=== PATIENT | male | born 1970 | race Caucasian/White ===

== ENCOUNTER 2024-09-10 13:45 | Outpatient (REF) | payer OTHER, SELFPAY ==
--- NOTE | ~2024-09-10 | US_ITS ---
EXAMINATION: US DIAGNOSTIC ULTRASOUND BREAST, LEFT CLINICAL INFORMATION: Follow-up ultrasound examination from diagnostic mammogram 09/10/2024. Left nipple tenderness, mild left breast enlargement . 54-year-old male. COMPARISON: Mammography dated earlier same day. TECHNIQUE: Ultrasound of the left breast is performed with real-time gregory scale imaging and color Doppler. Attention was given to the left retroareolar region. FINDINGS: There is a mild amount of retroareolar breast tissue development. Findings are consistent with mild male gynecomastia. No suspicious mass, abnormal shadowing, cystic abnormality, duct ectasia, or edema within the soft tissue planes. This correlates with the appearance on the diagnostic mammography from earlier same day. US/US breast LT limited mamm only IMPRESSION: -No findings suspicious for malignancy. -Mild left male gynecomastia. Recommend clinical management and follow-up. ASSESSMENT: BI-RADS 2: Benign RECOMMENDATION: 1. Patient should be managed based on the clinical impression. Electronically signed by: Marcio Membreno MD 09/12/2024 12:14 PM LA REYNOSO
--- NOTE | ~2024-09-10 | MM_ITS ---
EXAMINATION: MM DIAGNOSTIC DIGITAL BREAST TOMOSYNTHESIS, BILATERAL CLINICAL INFORMATION: Left middle tenderness, mild left breast enlargement . 54-year-old male. COMPARISON: Mammography: Baseline exam. TECHNIQUE: Digital breast tomosynthesis is performed in both the craniocaudal and mediolateral oblique views along with computer-aided detection (CAD). Synthesized 2D images are generated from the tomosynthesis. FINDINGS: The breasts are almost entirely fatty (ACR BI-RADS breast composition Category a). There is mild left and minimal right retroareolar breast tissue development consistent with male gynecomastia. There are no suspicious masses, suspicious grouped calcifications, or areas of architectural distortion in either breast. There is no skin or axillary abnormality. We will evaluate the retroareolar left breast with ultrasound. MM/MM tomosynthesis diagnostic BI IMPRESSION: There are no findings suspicious for malignancy. Findings suggestive of mild left gynecomastia. Ultrasound recommended. ASSESSMENT: BI-RADS BI-RADS 0 - Incomplete: Needs additional Imaging. RECOMMENDATION: Additional Imaging required: Targeted left breast ultrasound. This patient's information was entered into a reminder system with a target due date for their next mammogram. Electronically signed by: Marcio Membreno MD 09/10/2024 03:26 PM LA
== END 2024-09-10 13:46 | disposition home or self-care (01) ==
LOC: HO.MAMMO 13:45
PROVIDERS: PCP Internal Medicine; Visit Provider Nurse Practitioner Family
DX: N64.4 Mastodynia (principal); N62 Hypertrophy of breast
CPT/HCPCS: 76642; 77062; 77066

== ENCOUNTER → 2024-09-10 14:00 | Outpatient (BNV) | payer OTHER, SELFPAY | PROVIDERS: PCP Internal Medicine; Visit Provider Radiology Diagnostic Radiology | DX: N64.4 Mastodynia (principal) | CPT/HCPCS: 76642; 77062; 77066 ==

== ENCOUNTER 2025-03-01 12:11 | Emergency (ER) | payer OTHER, SELFPAY ==
--- NOTE | 2025-03-01 12:14 | ED_ITS ---
HPI - Eye Problem General Chief complaint: Skin/Abscess/Foreign Body Stated complaint: Infection Under Left Eye Time Seen by Provider: 03/01/25 14:43 Related Data Home Medications ?Medication ?Instructions ?Recorded ?Confirmed buspirone 10 mg tablet 10 mg PO BID 09/27/22 clonazepam 0.5 mg tablet 0.5 mg PO .prn 09/27/22 gabapentin 600 mg tablet 600 mg PO .prn 09/27/22 humalog insulin pump 09/27/22 lisinopril 10 mg tablet 10 mg PO DAILY 09/27/22 metoclopramide HCl 10 mg tablet 10 mg PO Q6H PRN 09/27/22 (Reglan) Previous Rx's ?Medication ?Instructions ?Recorded sulfamethoxazole 800 1 tab PO BID 5 days #10 tabs 09/27/22 mg-trimethoprim 160 mg tablet (Bactrim DS) cephalexin 500 mg capsule 500 mg PO QID 5 days #20 caps 03/01/25 doxycycline hyclate 100 mg capsule 100 mg PO BID 5 days #10 caps 03/01/25 Allergies Allergy/AdvReac Type Severity Reaction Status Date / Time codeine [Codeine] AdvReac Mild NAUSEA & Verified 03/01/25 12:39 VOMITING PMFSH Social History Social History Alcohol intake: never Smoked in Last 30 Days: No Use of substances other than those prescribed or required for medical reasons: Yes Substance Use Type: Marijuana Advance Directives: Yes Advance Directives Information Provided: Yes Advance Directives on File: No Physical Exam 2 Vital Signs: Vital Signs: Last Vital Signs Temp 98.5 F 03/01/25 15:44 Pulse 84 03/01/25 15:44 Resp 14 03/01/25 15:44 BP 121/79 03/01/25 15:44 Pulse Ox 100 03/01/25 15:44 O2 Del Method Room Air 03/01/25 15:44 BMI result Body Mass Index 20.4 Course Course Course Narrative: This is an RME performed by Zack Logan CNP: Additional HPI, ROS, PE not included below will be deferred to primary provider. 54 yo male with PMHx of presents to the ED due to abscess under the L eye. [facility]. Reports he has had same episode of abscess in the same spot 1 year ago, had MRSA and was treated with ABX. He states he feels mild pressure in the area, but denies orbital pain . Does not know if he has had fevers at home, has not checked. PE: EOM intact, 2x2cm fluctuant abscess with small volume purulent discharge. Plan: labs, Reevaluation(s) Reevaluation #1: see additional note dated 03/01/2025 from brent ferris Medications Administered Discontinued Medications Generic Name Dose Route Start Last Admin Trade Name Ronnellq PRN Reason Stop Dose Admin Cephalexin HCl 500 mg 03/01/25 15:18 03/01/25 15:36 Cephalexin 500 Mg Capsule PO 03/01/25 15:19 500 mg ONCE ONE Administration Doxycycline Monohydrate 100 mg 03/01/25 15:18 03/01/25 15:36 Doxycycline Monohydrate 100 Mg Capsule PO 03/01/25 15:19 100 mg ONCE ONE Administration Lactated Ringer's 1,000 mls @ 999 mls/hr 03/01/25 14:43 03/01/25 15:40 Lr IV 03/01/25 15:43 Infused .Q1H1M ONE Infusion Lidocaine HCl 10 ml 03/01/25 14:45 03/01/25 15:03 Lidocaine Hcl 1 % 20 Ml Vial INFILTRATI 03/01/25 14:46 10 ml ONCE ONE Administration Medical Decision Making Lab Data 03/01/25 13:15 03/01/25 13:15 Labs: Lab Results 03/01/25 Range/Units 13:15 WBC 11.9 H (4.8-10.8) X10*3/uL RBC 3.91 L (4.60-5.80) X10*6/uL Hgb 12.4 L (14.0-18.0) g/dl Hct 35.6 L (42.0-52.0) % MCV 91.0 (80.0-98.0) fL MCH 31.7 (27.0-33.0) pg MCHC 34.8 (31.0-36.0) g/dl RDW 12.8 (11.0-16.0) % Plt Count 275 (160-400) X10*3/uL MPV 10.4 (9.4-12.4) fL Immature Gran % (Auto) 0.3 (0.0-0.4) % Neut % (Auto) 72.0 (45-73) % Lymph % (Auto) 18.1 L (20-40) % [place] % (Auto) 9.2 (2-11) % Eos % (Auto) 0.0 (0-4) % Baso % (Auto) 0.4 (0-2) % Lymph # (Auto) 2.2 (1.2-4.9) X10*3/uL [place] # (Auto) 1.1 (0.1-1.2) X10*3/uL Eos # (Auto) 0.0 (0.0-0.4) X10*3/uL Baso # (Auto) 0.1 (0.0-0.2) X10*3/uL Abs Immat Gran (auto) 0.04 H (0.00-0.03) X10*3/uL Absolute Neuts (auto) 8.6 H (2.0-8.3) x10*3/uL Absolute Nucleated RBC 0.000 (0.0-0.012) X10*3/uL Nucleated RBC % (auto) 0.0 (0.0-0.2) /100WBC Sodium 134 L (135-145) mmol/L Potassium 3.8 (3.3-5.1) mmol/L Chloride 97 (96-108) mmol/L Carbon Dioxide 27 (22-29) mmol/L Anion Gap 14 (12-20) BUN 41 H (9-16) mg/dL Creatinine 1.55 H (0.5-1.4) mg/dL Estim Creat Clear Calc 55.7 Estimated GFR 47 Random Glucose 193 H (60-115) mg/dL Calcium 9.4 (8.4-10.2) mg/dL Total Bilirubin 0.5 (0.0-1.0) mg/dL AST 27 (5-37) U/L ALT 25 (0-40) U/L Alkaline Phosphatase 78 (39-117) U/L Total Protein 7.1 (6.5-8.0) g/dL Albumin 4.3 (3.5-5.0) g/dL Discharge Plan Discharge Clinical Impression: Cellulitis, Abscess of skin or subcutaneous tissue, Acute kidney injury Patient Disposition: Home, Self-Care Instructions: Abscess Incision and Drainage (DC) Additional Instructions: You were seen and evaluated in the emergency room. Your abscess was incised and drained. You were given antibiotics. A prescription for 2 antibiotics has been sent to your pharmacy. Please take as directed and until completed. Your doxycyline antibiotic should be taken twice a day - once in the morning and once at night. Your cephalexin antibiotics should be taken four times a day - once in the morning, once late morning/at noon, once in the afternoon and once in the evening (approximately 6 hours apart). You may change the dressing/bandage on your face 1-2x per day. Please wash your face daily with soap and water only. Please continue to apply a triple antibiotic ointment such as Neosporin 2-3x per day until healed. After you wound has healed, please avoid direct sunlight and use SPF30 to avoid scar formation. Please do so for one year. Barkley were noted to have some evidence of potential dehydration on your blood work and so were given fluids (your BUN was 41 and Creatinine 1.55). Please follow up with your primary care doctor in 3-5 days for reevluation. Return to the emergency room with any new concerns or symptoms. Prescriptions: New cephalexin 500 mg capsule 500 mg PO QID 5 Days Qty: 20 0RF doxycycline hyclate 100 mg capsule 100 mg PO BID 5 Days Qty: 10 0RF No Action buspirone 10 mg tablet 10 mg PO BID metoclopramide HCl [Reglan] 10 mg tablet 10 mg PO Q6H PRN lisinopril 10 mg tablet 10 mg PO DAILY gabapentin 600 mg tablet 600 mg PO .prn clonazepam 0.5 mg tablet 0.5 mg PO .prn (DME) humalog insulin pump 0 .ROUTE .MEDSUPPLY sulfamethoxazole-trimethoprim [Bactrim DS] 800-160 mg tablet 1 tab PO BID 5 Days Qty: 10 0RF Interventions: ED Discharge Assessment Last Done: 03/01/25 15:44 Discharge Date/Time: 03/01/25 15:45 Print Language: Azeri
[2025-03-01 12:26] VITALS: BP 126/78; PULSE 108; RESP 18; TEMP 36.6; O2SAT 100; BMI 20.4
[2025-03-01 13:19] LABS: MANUAL DIFF FLAG NO
[2025-03-01 13:21] LABS: Basophils Absolute Auto 0.1 X10*3/uL (0.0-0.2); Basophils Percent Auto 0.4 % (0-2); Hematocrit 35.6 % (42.0-52.0); Hemoglobin 12.4 g/dl (14.0-18.0); Imm Gran Abs Auto 0.04 X10*3/uL (0.00-0.03); Imm Gran Pct Auto 0.3 % (0.0-0.4); Lymphocytes Absolute Auto 2.2 X10*3/uL (1.2-4.9); Lymphocytes Percent Auto 18.1 % (20-40); Mean Corpuscular HGB Conc 34.8 g/dl (31.0-36.0); Mean Corpuscular Hemoglobin 31.7 pg (27.0-33.0); Mean Platelet Volume 10.4 fL (9.4-12.4); Monocytes Absolute Auto 1.1 X10*3/uL (0.1-1.2); Monocytes Percent Auto 9.2 % (2-11); Neutrophils Absolute Auto 8.6 x10*3/uL (2.0-8.3); Platelet Count 275 X10*3/uL (160-400); Red Blood Count 3.91 X10*6/uL (4.60-5.80); Red Cell Distribution Width 12.8 % (11.0-16.0); White Blood Count 11.9 X10*3/uL (4.8-10.8)
[2025-03-01 13:34] LABS: Alanine Aminotransferase 25 U/L (0-40); Albumin Level 4.3 g/dL (3.5-5.0); Alkaline Phosphatase 78 U/L (39-117); Anion Gap 14 (12-20); Aspartate Amino Transferase 27 U/L (5-37); Bilirubin Total 0.5 mg/dL (0.0-1.0); Blood Urea Nitrogen 41 mg/dL (9-16); Calcium 9.4 mg/dL (8.4-10.2); Carbon Dioxide 27 mmol/L (22-29); Chloride 97 mmol/L (96-108); Creatinine Clr Calc Pharmacy 55.7; Estimated Glomerular Filt Rate 47; Glucose Random 193 mg/dL (60-115); Potassium 3.8 mmol/L (3.3-5.1); Sodium 134 mmol/L (135-145); Total Protein 7.1 g/dL (6.5-8.0)
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
--- OUTSIDE RECORDS SUMMARY | 2025-03-01 14:49 | XMS_ITS ---
Author Organization [facility] Address [address] [place] [address] Care Team Providers Care Electrical Installation Inspector Name Role Phone Guy CAM, Christine Primary Care Provider Unavail able Harinder Cameron Unavailable [phone] Allergies Allergen (clinical drug ingredient) Drug/Non Drug Allergy documented on EMR Reaction Allergy Type Onset Date Status codeine Codeine Sulfate Unknown Drug Allergy A ctive REASON FOR VISIT bowel prep Medications Medication SIG (Take, Route, Frequency, Duration) Notes Start Date End Date Status Dulcolax (colon prep) 5 MG take at 3:00 p.m and 7:00p.m. Orally two tablets twice a day for one day for 1 days 02/17/2025 Active MiraLax (colon prep) 17 GM/SCOOP 1 238 Gm bottle mixed with Gatorade or Crystal Light orally begin at 5:00 p.m. the day before the procedure for 1 days 02/17/2025 Active Problems Problem Type SNOMED Code ICD Code Onset Dates Problem Status W/U Status Risk Notes Problem Gastric ulcer (590258858) Gastric ulcer (K25.9) Active confirmed Encounters Encounter Location Date Provider Diagnosis [facility] [address] [place] [phone] 01/04/2025 Harinder Cameron Plan Of Treatment Medication Medication Name Sig Start Date Stop Date Notes Dulcolax (colon prep) 5 MG take at 3:00 p.m and 7:00p.m. Orally two tablets twice a day for one day for 1 days 02/17/2025 MiraLax (colon prep) 17 GM/SCOOP 1 238 Gm bottle mixed with Gatorade or Crystal Light orally begin at 5:00 p.m. the day before the procedure for 1 days 02/17/2025 Next Appt Details Provider Name:Harinder Cameron , 04/12/2025 11:10:00 AM, [address] , [place], [place], [phone], Progress Notes * DARYA BETTENCOURTDOB:1970 (54 yo M)Acc No.[id number]:01/04/2025 Patient:?DARYA BETTENCOURT :1970???Age:54 Y???Sex:Male Address:[address] [place] [address] * Refills? Start MiraLax (colon prep) Powder, 17 GM/SCOOP, orally, 1, 1 238 Gm bottle mixed with Gatorade or Crystal Light, begin at 5:00 p.m. the day before the procedure, 1 days, Refills=0 Start Dulcolax (colon prep) Tablet Delayed Release, 5 MG, Orally, 4, take at 3:00 p.m and 7:00p.m., two tablets twice a day for one day, 1 days, Refills=0 Subjective: * Chief Complaints: * ???Bowel prep * Medical History:? * Surgical History:? * Hospitalization/Major Diagno stic Procedure:? * Medications:? * Allergies:?Codeine Sulfate Objective: * Vitals:? * Physical Examination:? Assessment: Plan: * Treatment: * Procedure Codes:? * true * Date:? Generated for Maame miller/Latoya/eTvinaysmitting on:?03/01/2025 11:33 AM EDT
--- OUTSIDE RECORDS SUMMARY | 2025-03-01 14:49 | XMS_ITS | Clinical Summary ---
Author Organization Formerly [facility] Address [address] [place] [address] Care Team Providers Care Perfumer Name Role Phone Unavailable Primary Care Provider Unavailabl e Social History Tobacco Use Types Packs/Day Years Used Date Smoking Tobacco: Never Assessed Sex and Gender Information Value Date Recorded Sex Assigned at Not on file Gender Identity Not on file Sexual Orientation Not on file Plan of Treatment Not on file
--- OUTSIDE RECORDS SUMMARY | 2025-03-01 14:49 | XMS_ITS ---
Author Organization [facility] Address [address] [place] [id number] Care Team Providers Care Chip Mixer Name Role Phone Guy CAM, Christine Primary Care Provider Unavail able Harinder Cameron Unavailable [phone] REASON FOR VISIT EGD RECALL Encounters Encounter Location Date Provider Diagnosis [facility] [address] [place] [phone] 12/28/2024 Harinder Cameron Plan Of Treatment Next Appt Details Provider Name:Harinder Cameron , 04/12/2025 11:10:00 AM, [address] [place] [address] , [place], [place], [phone], Progress Notes * DARYA BETTENCOURTDOB:1970 (54 yo M)Acc No.[id number]:12/28/2024 Progress Notes Patient:DARYA HOOPER Provider:?Harinder Cameron MD :1970???Age:54 Y???Sex:Male Kal e:12/28/2024 Address:[address] [place], [place] [id number] Pcp:Christine Tovar NP Subjective: * Chief Complaints: * ???1. EGD RECALL. * Medical History:? Objective: * Vitals:? Assessment: Plan: * Treatment: * * The named appointment provid er may or may not be the originator of this progress note, and it is not deemed complete until electronically signed by the appointment provider. Sign off status: Pending * Provider:?Harinder Cameron MD Date:? 025 Generated for Maame miller/Latoya/eTransmitting on:?03/01/2025 11:33 AM EDT
[2025-03-01] MEDS: Lactated Ringers 1,000 ML 999 ML IV (14:56)
[2025-03-01] MEDS: Lidocaine HCl 1 % 20 ML VIAL 10 ML INFILTRATI (15:03)
--- NOTE | 2025-03-01 15:19 | ED.GENADULT ---
HPI - General Adult General Chief complaint: Skin/Abscess/Foreign Body Stated complaint: Infection Under Left Eye Time Seen by Provider: 03/01/25 14:43 Source: patient Mode of arrival: ambulatory Limitations: no limitations History of Present Illness HPI narrative: this is a 54-year-old man with a past medical history of hypertension, hyperlipidemia, type 1 diabetes mellitus (on insulin pump) complicated by gastroparesis, history of MRSA who presents for evaluation of skin abscess. Patient states noting this developing over the last 5 days. Patient states that he previously had a similar abscess in the same area about a year ago. The patient states that he is noted to have a MRSA infection at that time. patient states no associated fevers or chills. He states no eye pain no pain with eye movement. He states no vision changes. He states no otalgia. He states no sore throat. He states no chest pain or dyspnea. He states no trauma. Related Data Home Medications ?Medication ?Instructions ?Recorded ?Confirmed buspirone 10 mg tablet 10 mg PO BID 09/27/22 clonazepam 0.5 mg tablet 0.5 mg PO .prn 09/27/22 gabapentin 600 mg tablet 600 mg PO .prn 09/27/22 humalog insulin pump 09/27/22 lisinopril 10 mg tablet 10 mg PO DAILY 09/27/22 metoclopramide HCl 10 mg tablet 10 mg PO Q6H PRN 09/27/22 (Reglan) Previous Rx's ?Medication ?Instructions ?Recorded sulfamethoxazole 800 1 tab PO BID 5 days #10 tabs 09/27/22 mg-trimethoprim 160 mg tablet (Bactrim DS) cephalexin 500 mg capsule 500 mg PO QID 5 days #20 caps 03/01/25 doxycycline hyclate 100 mg capsule 100 mg PO BID 5 days #10 caps 03/01/25 Allergies Allergy/AdvReac Type Severity Reaction Status Date / Time codeine [Codeine] AdvReac Mild NAUSEA & Verified 03/01/25 12:39 VOMITING Review of Systems Review of Systems: ROS as per HPI [facility] Social History Social History Alcohol intake: never Smoked in Last 30 Days: No Use of substances other than those prescribed or required for medical reasons: Yes Substance Use Type: Marijuana Advance Directives: Yes Advance Directives Information Provided: Yes Advance Directives on File: No Physical Exam ED Vital Signs: Vital Signs - 24 hr 03/01/25 12:26 Temperature 97.8 F Pulse Rate 108 H Respiratory Rate 18 Blood Pressure 126/78 Pulse Oximetry 100 Oxygen Delivery Method Room Air BMI result Body Mass Index 20.4 Gen: NAD, AOx3 HEENT: NCAT, EOMI without pain, normal conjunctiva, no periorbital erythema CV: RRR Pulm: CTAB, no increased work of breathing GI: Soft, NTND, no rebound, guarding or rigidity Neuro: Grossly non focal skin: Warm, dry, erythematous/warm fluctuance overlying the left zygoma with tenderness to palpation and minimal spontaneous purulent drainage Medications Administered Generic Name Dose Route Start Last Admin Trade Name Freq PRN Reason Stop Dose Admin Lactated Ringer's 1,000 mls @ 999 mls/hr 03/01/25 14:43 03/01/25 14:56 Lr IV 03/01/25 15:43 999 mls/hr .Q1H1M ONE Administration Discontinued Medications Generic Name Dose Route Start Last Admin Trade Name Freq PRN Reason Stop Dose Admin Lidocaine HCl 10 ml 03/01/25 14:45 03/01/25 15:03 Lidocaine Hcl 1 % 20 Ml Vial INFILTRATI 03/01/25 14:46 10 ml ONCE ONE Administration Procedures Abscess I/D Site: face Side (if applicable): left Local Anesthetic: lidocaine 1% Amount of anesthesia used (mL): 3 Technique: incised with blade Sent for culture/gram staining?: Yes Irrigation: Yes Packing used?: none Medical Decision Making Medical Decision Making MDM Narrative: Differential diagnosis includes, but is not limited to cellulitis, abscess. Patient is afebrile and hemodynamically stable on room air. Exam is consistent with abscess and associated facial cellulitis to the overlying skin. There is no periorbital erythema to suggest periorbital cellulitis and certainly exam as above is not consistent with orbital cellulitis. Abscess is incised and drained as above without complication. Patient is provided cephalexin as well as doxycyline given associated purulence and history of MRSA. I reviewed the patient's labs as below. Given potential for acute kidney injury the patient was provided IV fluids although there is no previous blood work for comparison. Patient made aware of this finding and need for re-evaluation with his primary care doctor. He stated understanding and agreement with plan of care. On re-examination, patient is well-appearing and in no acute distress. There is no indication for further emergent evaluation in this otherwise well-appearing patient as above. Patient is provided written and verbal instructions, educational materials, recommendations for outpatient follow-up, prescription for cephalexin and doxycyline, strict return precautions and teach back is performed. Patient states understanding and agreement with plan of care. Patient is discharged home in stable and improved condition. Admission/Observation Consideration of admission/observation: Escalation of care including admission/observation considered Lab Data MDM Lab Attestation statement: I reviewed the patient's lab results. Labs notable for leukocytosis of 11.9, stable anemia with hemoglobin 12.4, creatinin 1.55 ( no previous for comparison) 03/01/25 13:15 03/01/25 13:15 Labs: Lab Results 03/01/25 Range/Units 13:15 WBC 11.9 H (4.8-10.8) X10*3/uL RBC 3.91 L (4.60-5.80) X10*6/uL Hgb 12.4 L (14.0-18.0) g/dl Hct 35.6 L (42.0-52.0) % MCV 91.0 (80.0-98.0) fL MCH 31.7 (27.0-33.0) pg MCHC 34.8 (31.0-36.0) g/dl RDW 12.8 (11.0-16.0) % Plt Count 275 (160-400) X10*3/uL MPV 10.4 (9.4-12.4) fL Immature Gran % (Auto) 0.3 (0.0-0.4) % Neut % (Auto) 72.0 (45-73) % Lymph % (Auto) 18.1 L (20-40) % Prowers % (Auto) 9.2 (2-11) % Eos % (Auto) 0.0 (0-4) % Baso % (Auto) 0.4 (0-2) % Lymph # (Auto) 2.2 (1.2-4.9) X10*3/uL Prowers # (Auto) 1.1 (0.1-1.2) X10*3/uL Eos # (Auto) 0.0 (0.0-0.4) X10*3/uL Baso # (Auto) 0.1 (0.0-0.2) X10*3/uL Abs Immat Gran (auto) 0.04 H (0.00-0.03) X10*3/uL Absolute Neuts (auto) 8.6 H (2.0-8.3) x10*3/uL Absolute Nucleated RBC 0.000 (0.0-0.012) X10*3/uL Nucleated RBC % (auto) 0.0 (0.0-0.2) /100WBC Sodium 134 L (135-145) mmol/L Potassium 3.8 (3.3-5.1) mmol/L Chloride 97 (96-108) mmol/L Carbon Dioxide 27 (22-29) mmol/L Anion Gap 14 (12-20) BUN 41 H (9-16) mg/dL Creatinine 1.55 H (0.5-1.4) mg/dL Estim Creat Clear Calc 55.7 Estimated GFR 47 Random Glucose 193 H (60-115) mg/dL Calcium 9.4 (8.4-10.2) mg/dL Total Bilirubin 0.5 (0.0-1.0) mg/dL AST 27 (5-37) U/L ALT 25 (0-40) U/L Alkaline Phosphatase 78 (39-117) U/L Total Protein 7.1 (6.5-8.0) g/dL Albumin 4.3 (3.5-5.0) g/dL Discharge Plan Discharge Clinical Impression: Cellulitis, Abscess of skin or subcutaneous tissue, Acute kidney injury Patient Disposition: Home, Self-Care Instructions: Abscess Incision and Drainage (DC) Additional Instructions: You were seen and evaluated in the emergency room. Your abscess was incised and drained. You were given antibiotics. A prescription for 2 antibiotics has been sent to your pharmacy. Please take as directed and until completed. Your doxycyline antibiotic should be taken twice a day - once in the morning and once at night. Your cephalexin antibiotics should be taken four times a day - once in the morning, once late morning/at noon, once in the afternoon and once in the evening (approximately 6 hours apart). You may change the dressing/bandage on your face 1-2x per day. Please wash your face daily with soap and water only. Please continue to apply a triple antibiotic ointment such as Neosporin 2-3x per day until healed. After you wound has healed, please avoid direct sunlight and use SPF30 to avoid scar formation. Please do so for one year. Barkley were noted to have some evidence of potential dehydration on your blood work and so were given fluids (your BUN was 41 and Creatinine 1.55). Please follow up with your primary care doctor in 3-5 days for reevluation. Return to the emergency room with any new concerns or symptoms. Prescriptions: New cephalexin 500 mg capsule 500 mg PO QID 5 Days Qty: 20 0RF doxycycline hyclate 100 mg capsule 100 mg PO BID 5 Days Qty: 10 0RF No Action buspirone 10 mg tablet 10 mg PO BID metoclopramide HCl [Reglan] 10 mg tablet 10 mg PO Q6H PRN lisinopril 10 mg tablet 10 mg PO DAILY gabapentin 600 mg tablet 600 mg PO .prn clonazepam 0.5 mg tablet 0.5 mg PO .prn (DME) humalog insulin pump 0 .ROUTE .MEDSUPPLY sulfamethoxazole-trimethoprim [Bactrim DS] 800-160 mg tablet 1 tab PO BID 5 Days Qty: 10 0RF Print Language: Maltese
[2025-03-01 15:32] VITALS: BP 121/79; PULSE 84; RESP 14; TEMP 36.9; O2SAT 100
[2025-03-01] MEDS: cephALEXin 500 MG CAPSULE PO (15:36)
[2025-03-01] MEDS: Doxycycline Monohydrate 100 MG CAPSULE PO (15:36)
[2025-03-01 15:44] VITALS: BP 121/79; PULSE 84; RESP 14; TEMP 36.9; O2SAT 100
== END 2025-03-01 15:45 | disposition home or self-care (01) ==
PROVIDERS: Nurse Practitioner Family; Emergency Provider Emergency Medicine; PCP Hospitalist
DX: L02.01 Cutaneous abscess of face (principal); L03.211 Cellulitis of face; N17.9 Acute kidney failure, unspecified; Z79.899 Other long term (current) drug therapy
CPT/HCPCS: 10060; 36415; 80053; 85025; 87070; 87077; 87186; 87205; 96360; 99284; J2003; J7120

== ENCOUNTER 2025-04-12 10:13 | Day surgery (SDC) | payer OTHER, SELFPAY ==
--- OUTSIDE RECORDS SUMMARY | 2025-04-03 17:05 | XMS_ITS ---
Author Organization [facility] Address [address] [place] [address] Care Team Providers Care Research Contracts Supervisor Name Role Phone Guy CAM, Christine Primary Care Provider Unavail able Harinder Cameron Unavailable [phone] Allergies Allergen (clinical drug ingredient) Drug/Non Drug [...] Problem Status W/U Status Risk Notes Problem History of polyp of colon (situation) (533620148) Personal history of colonic polyps (Z86.010) Active [...] N/A Encounters Encounter Location Date Provider Diagnosis [facility] [address] [place] [address] 01/04/2025 Harinder Cameron Gastroparesis K31.84 ; Powell''s [...] Provider Name:Harinder Cameron , 04/12/2025 11:10:00 AM, [address] [place] [address] , [place], [place], [phone], Progress Notes * DARYA BETTENCOURTDOB:1970 (54 yo M)Acc No.[id number]:01/04/2025 Progress Notes Patient:DARYA HOOPER Provider:?Harinder Cameron MD :1970???Age:54 Y???Sex:Male Kal e:01/04/2025 Address:[address] [place], [place] [id number] Pcp:Christine Tovar NP Subjective: * Chief Complaints: [...] year??Never (0 point),?Points?1,?Interpretation?Negative.?Miscellaneous:?Marital status: . 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 ???Nonsmoker since 2015; no sig alcohol. * [...] capsule, Orally, twice a day.?? * Procedure Codes:?39719 UPPR GI ENDOSCOPY, [id number] DIAGNOSTIC [id number] COLORECTAL CA SCREEN DOC [id number] TOBACCO [id number] BP SCR NOT PRFRM REC REASON [id number] RCMND FLW-UP 10 YRS DOCD * Follow Up:?prn * * Sign off status: Completed true * Provider:?Harinder Cameron MD Date:? 025 Generated for Maame miller/Latoya/Carlositting on:?04/03/2025 05:05 PM EDT
[2025-04-10 15:11] VITALS: BMI 21.7
--- NOTE | 2025-04-11 09:59 | HO.ANESPROP2 ---
Documented by User: Tabatha Delgadillo NP 04/11/25 09:59 HPI - Anesthesia Eval Consult details Narrative: 55yo M for Upper Endoscopy and Colonoscopy [facility] Past Medical History Medical History Barretts esophagus Hiatal hernia Back pain Hyperlipidemia GERD (gastroesophageal reflux disease) Gastroparesis Insulin pump in place Diabetes Surgical History Surgical History H/O colonoscopy History of esophagogastroduodenoscopy (EGD) History of carpal tunnel release of both wrists Hx of shoulder surgery Social History Social History Alcohol intake: never Patient Tobacco Use Status: Former Tobacco user Substance Use Type: Marijuana Have you been hit, kicked, punched, or otherwise hurt by someone within the past year? If so, by whom?: No Are you DNR?: No Advance Directives: No Advance Directives Information Provided: Yes Meds Allergies Allergy/AdvReac Type Severity Reaction Status Date / Time codeine (Codeine) AdvReac Mild NAUSEA & Verified 03/01/25 12:39 VOMITING Home Medications ?Medication ?Instructions ?Recorded ?Confirmed ?Last Taken ?Type clonazepam 0.5 mg tablet 0.5 mg PO .prn 09/27/22 04/10/25 Unknown History gabapentin 600 mg tablet 600 mg PO .prn PRN Pain 09/27/22 04/10/25 Unknown History humalog insulin pump 09/27/22 Unknown History metoclopramide HCl 10 mg tablet 10 mg PO TIDAC 09/27/22 04/10/25 Unknown History (Reglan) Insulin Cartridge 04/10/25 04/10/25 Unknown History ezetimibe 10 mg tablet 10 mg PO DAILY 04/10/25 04/10/25 Unknown History omeprazole 20 mg capsule,delayed 20 mg PO BID 04/10/25 04/10/25 Unknown History release simvastatin 04/10/25 Unknown History Exam Height,Weight and Vital Signs: Height 6 ft 3 in Weight 78.925 kg Assessment and Plan Assessment Anesthesia Assessment: Chart Reviewed Documented by User: Santino Malik MD 04/12/25 11:10 [facility] Past Medical History Medical History Barretts esophagus Hiatal hernia Back pain Hyperlipidemia GERD (gastroesophageal reflux disease) Gastroparesis Insulin pump in place Diabetes Cognitive capacity: normal Functional capacity: independent ambulation Family History Family history of problems with anesthesia: No Surgical History Surgical History H/O colonoscopy History of esophagogastroduodenoscopy (EGD) History of carpal tunnel release of both wrists Hx of shoulder surgery History of Problems with Anesthesia: No Social History Social History Alcohol intake: never Patient Tobacco Use Status: Former Tobacco user Substance Use Type: Marijuana Have you been hit, kicked, punched, or otherwise hurt by someone within the past year? If so, by whom?: No Are you DNR?: No Advance Directives: No Advance Directives Information Provided: Yes Meds Allergies Allergy/AdvReac Type Severity Reaction Status Date / Time codeine (Codeine) AdvReac Mild NAUSEA & Verified 03/01/25 12:39 VOMITING Home Medications ?Medication ?Instructions ?Recorded ?Confirmed ?Last Taken ?Type clonazepam 0.5 mg tablet 0.5 mg PO .prn 09/27/22 04/10/25 Unknown History gabapentin 600 mg tablet 600 mg PO .prn PRN Pain 09/27/22 04/10/25 Unknown History humalog insulin pump 09/27/22 Unknown History metoclopramide HCl 10 mg tablet 10 mg PO TIDAC 09/27/22 04/10/25 Unknown History (Reglan) Insulin Cartridge 04/10/25 04/10/25 Unknown History ezetimibe 10 mg tablet 10 mg PO DAILY 04/10/25 04/10/25 Unknown History omeprazole 20 mg capsule,delayed 20 mg PO BID 04/10/25 04/10/25 Unknown History release simvastatin 04/10/25 Unknown History Exam Exam Date and Time: 04/12/2025 Airway Mallampati Class: II Loose/Missing/Broken Teeth: No Heart: rrr Lungs: cta Assessment and Plan Final Anesthetic Review Family History of Problems with Anesthesia: No History of Problems with Anesthesia: No NPO: Yes ASA Class: III Final Preanesthetic Review: No Changes in Pt Med Stat, Meds/Allgs Chart Reviewed, Consent Obtained/Reviewed and Anes Risks/Benef Reviewed Patient Risk: Low Procedure Risk: Low Anesthetic Plan Anesthetic Plan: MAC: Disposition: Standard PACU
[2025-04-12 10:17] VITALS: BP 110/58; PULSE 92; RESP 20; TEMP 36.9; O2SAT 98; BMI 20.9
[2025-04-12] MEDS: Lactated Ringers 1,000 ML 100 ML IVCONT (10:39)
[2025-04-12 12:23] VITALS: BP 100/60; PULSE 69; RESP 16; TEMP 36.4; O2SAT 98
--- NOTE | 2025-04-12 12:27 | PM.OP ---
Brief Operative Note Date of Service: 04/12/25 Pre-op diagnosis: Powell's, Screening Post-op diagnosis: other (Same, Hiatal hernia, Polyps) Procedure: EGD with bx, Colonoscopy to the cecum with bx/removal of transverse colon polyp and cold snare polypectomy of rectal polyp Surgeon: Harinder Cameron MD Anesthesia: MAC Was an Engine Research Engineer used for this Procedure?: No Estimated blood loss (mL): 2.0 Pathology: other (A. EG Junction at 40cm B. Transverse colon polyp C. Rectal polyp) Condition: stable Disposition: PACU
[2025-04-12 12:43] VITALS: BP 145/70; PULSE 61; RESP 17; TEMP 36.4; O2SAT 99
--- NOTE | 2025-04-12 14:43 | OP_ITS ---
DATE OF SERVICE: 04/12/2025 SURGEON: Harinder Cameron MD INDICATIONS: The patient presents for evaluation of gastroesophageal reflux with associated Powell's esophagus, and colorectal cancer screening with a history of tubular adenomas. Full consent obtained from him for this, including risks of bleeding and perforation. PREOPERATIVE DIAGNOSIS: POSTOPERATIVE DIAGNOSIS: PROCEDURE PERFORMED: Esophagogastroduodenoscopy with biopsies, and colonoscopy to the cecum with biopsy and removal of polyp, and cold snare polypectomy. ESTIMATED BLOOD LOSS: COMPLICATIONS: ANESTHESIA: Medication used, monitored anesthesia care. ASSISTANTS: SPECIMENS: PREOPERATIVE DIAGNOSES: Gastroesophageal reflux, Powell's esophagus, colorectal cancer screening and personal history of tubular adenomas of the colon. POSTOPERATIVE DIAGNOSES: Gastroesophageal reflux, Powell's esophagus, colorectal cancer screening and personal history of tubular adenomas of the colon, hiatal hernia, colon polyps, diverticulosis, and internal hemorrhoids. DESCRIPTION OF PROCEDURE: The patient was placed in left lateral decubitus position. The Olympus video gastroscope was passed in the posterior oropharynx and upper esophagus under direct vision. The scope was passed slowly to the distal esophagus. The gastroesophageal junction appeared at 40 cm. There was some slight irregularity consistent with reflux and possibly small areas of Powell's mucosa less than 1 cm in length. There was no esophagitis nor any lesions. There was a small hiatal hernia. The scope was advanced to the pylorus and the duodenum was cannulated to the descending portion. The duodenum including the bulb appeared normal without mass or ulceration. The scope withdrawn back in the stomach. The gastric antrum and body appeared normal. Peristalsis was subjectively diminished. The scope was retroflexed visualizing the proximal stomach carefully, which appeared normal, without any sign of mass or ulceration. There was no food anywhere in the stomach. The scope was withdrawn back to the esophagus. Biopsies were obtained at the EG junction at 40 cm. Proximal to this, the esophageal mucosa appeared normal. Scope was withdrawn. The patient was turned around for colonoscopy. The digital rectal exam revealed no abnormalities. The Olympus video pediatric colonoscope was entered into the rectum and advanced easily to the cecum. Once in the cecum, I did identify normal-appearing cecal pouch with appendiceal orifice and a normal-appearing ileocecal valve. The entire cecum and ileocecal valve appeared normal. There was transillumination of light deep in the right lower quadrant. The scope was then slowly withdrawn assessing all mucosal surfaces carefully. Preparation was excellent. In the proximal transverse colon, was a flat, approximately 4 mm polyp, which was biopsied and completely removed with cold biopsy forceps. In the proximal rectum was an approximately 6 mm polyp, which was removed by cold snare polypectomy and recovered by suction. The polypectomy site appeared clean, without any sign of residual polyp nor significant bleeding. I did not visualize any other polyps, colitis, nor angiodysplasia. There was a mild amount of sigmoid diverticulosis. In the rectum, scope was retroflexed visualizing some small internal hemorrhoids, but no other pathology. The rectal mucosa appeared normal. The scope was straightened and withdrawn from the patient. He tolerated both procedures well and was returned to recovery area in stable condition. IMPRESSION: 1. Small hiatal hernia, gastroesophageal reflux, history of Powell esophagus. 2. Subjectively diminished gastric peristalsis consistent with his underlying gastroparesis. 3. Colon polyps. 4. Diverticulosis. 5. Internal hemorrhoids. PLAN: The results of the pathology will be checked. I would recommend a repeat colonoscopy in 5 years for further surveillance. As long as the Powell's esophagus does not have dysplasia, then I would recommend a repeat upper endoscopy at the same time as his next colonoscopy in 5 years given the very minimal nature of the Powell's esophagus. He will continue his daily omeprazole. He did recently decrease the metoclopramide from 10 mg before meals to 5 mg before meals and has not noticed any worsening of his symptoms. I did advise him to decrease that further and even stop it if he tolerates it so as to avoid any potential residential side effects of the metoclopramide. MD MICHAEL Raza/HALEIGH / [id number] MTDaLcho
== END 2025-04-12 13:18 | disposition home or self-care (01) ==
PROVIDERS: PCP Hospitalist; Visit Provider Internal Medicine
PROC: (CPT 45385; principal; 2025-04-12 11:10)
DX: Z12.11 Encounter for screening for malignant neoplasm of colon (principal); D12.3 Benign neoplasm of transverse colon; D12.8 Benign neoplasm of rectum; K57.30 Diverticulosis of large intestine without perforation or abscess without bleeding; K64.8 Other hemorrhoids; Z86.0100 Personal history of colon polyps, unspecified; K21.9 Gastro-esophageal reflux disease without esophagitis; K22.70 Barrett's esophagus without dysplasia; K44.9 Diaphragmatic hernia without obstruction or gangrene; E11.9 Type 2 diabetes mellitus without complications; E78.5 Hyperlipidemia, unspecified; Z79.4 Long term (current) use of insulin; Z79.02 Long term (current) use of antithrombotics/antiplatelets; Z79.899 Other long term (current) drug therapy
CPT/HCPCS: 45385; 45380; 43239; 88305; 88313; J2704

== ENCOUNTER → 2025-06-14 08:50 | Outpatient (REF) | payer OTHER, SELFPAY ==
--- OUTSIDE RECORDS SUMMARY | 2025-04-12 07:10 | XMS_ITS ---
Author Organization [facility] Address [address] [place] [address] Care Team Providers Care Synthetic Plasterer Name Role Phone Guy CAM, Christine Primary Care Provider Unavail able Harinder Cameron Unavailable [phone] REASON FOR VISIT hayes's,screening, hx polyps Encounters Encounter Location Date Provider Diagnosis [facility] [address] [address], [place] [phone] 04/12/2025 Harinder Cameron Colon cancer scree darrell Z12.11 ; Personal history of adenomatous and serrated colon polyps Z86.0101 ; Colon polyps K63.5 ; Diverticulosis of large intestine without perforation or abscess without bleeding K57.30 ; Gastro-esophageal reflux disease without esophagitis K21.9 ; Hayes esophagus K22.70 ; Hiatal hernia K44.9 and Visible peristalsis R19.2 Assessments Encounter Date Diagnosis (ICD Code) Assessment Notes Treatment Notes Treatment Clinical Notes Section Notes 04/12/2025 Colon cancer screening (ICD-10 - Z12.11) 04/12/2025 Personal history of adenomatous and serrated colon polyps (ICD-10 - Z86.0101) 04/12/2025 Colon polyps (ICD-10 - K63.5) 04/12/2025 Diverticulosis of large intestine without perforation or abscess without bleeding (ICD-10 - K57.30) 04/12/2025 Gastro-esophageal reflux disease without esophagitis (ICD-10 - K21.9) 04/12/2025 Hayes esophagus (ICD-10 - K22.70) 04/12/2025 Hiatal hernia (ICD-10 - K44.9) 04/12/2025 Visible peristalsis (ICD-10 - R19.2) Plan Of Treatment No Information Progress Notes * DARYA BETTENCOURTDOB:1970 (55 yo M)Acc No.[id number]:04/12/2025 EGD and COL/MAC Patient: DARYA MATTA Provider: Claude Cameron MD :1970 A ge:55 Y S ex:Male Date:04/12/2025 Address:[address] [place], [place] [id number] Pcp:Christine Tovar NP Subjective: * Chief Complaints: * 1 . Hayes's,screening, hx polyps. * Medical History: Objective: * Vitals: Assessment: * Assessment: 1. C olon cancer screening - Z12.11 (Primary) 2 . P ersonal history of adenomatous and serrated colon polyps - Z86.0101 3 . C olon polyps - K63.5 ? 4 . D iverticulosis of large intestine without perforation or abscess without bleeding - K57.30 5 . G sharri-esophageal reflux disease without esophagitis - K21.9 ? 6 . B arrett esophagus - K22.70 7 . H iatal hernia - K44.9 ? 8 . V isible peristalsis - R19.2 Plan: * Treatment: * Procedure Codes: 4 5385 LESION REMOVAL COLONOSCOPY, 89952 COLONOSCOPY AND BIOPSY, Modifiers: 59 , 82150 UPPER GI ENDOSCOPY, BIOPSY * * The named appointment provid er may or may not be the originator of this progress note, and it is not deemed complete until electronically signed by the appointment provider. Sign off status: Pending * Provider: Claude Cameron MD Date: 0 04/12/2025 Generated for Maame miller/Latoya/Carlositting on: 0 06/14/2025 09:03 AM EDT
--- NOTE | ~2025-06-14 | NM_ITS ---
EXERCISE MYOCARDIAL PERFUSION STUDY INDICATION: Shortness of breath TECHNIQUE: The patient was brought in for an exercise perfusion study on 06/14/2025. Patient performed exercise as per Eddi protocol and was injected 30 mCi of sestamibi once target heart rate was achieved. Images were obtained using the SPECT gamma camera interlaced with the gating device. Images were obtained in supine position. Resting perfusion study was performed on 06/19/2025. Patient was administered 30 mCi of sestamibi intravenously at rest. Images were then obtained in supine position. Total DLP 77 mGy-cm. Images were processed with the software and compared side to side in short axis, horizontal long axis and vertical long axis views. FINDINGS: Raw aquisition reviewed. Both arms by his side. The stress perfusion study showed no significant perfusion abnormality. Both uncorrected as well as CT attenuation corrected images were reviewed. The gated study shows normal LV systolic function with calculated LVEF of 58%. LV cavity is normal in size. The gated study shows normal wall thickening and contraction of segments. Resting study shows no significant perfusion abnormality. Gating at rest reveals normal wall motion with ejection fraction at 62%. The findings are consistent with no clear reversible or fixed perfusion abnormality. NM/NM ivett perf SPECT rest & str IMPRESSION: 1. Myocardial perfusion imaging study shows normal myocardial perfusion. 2. Gated LVEF is 58% during stress and 62% during rest. 3. Transient ischemic dilatation not present. EKG component of the test reported separately. Electronically signed by: Guy Maurice MD 06/20/2025 03:58 PM EDT
--- NOTE | 2025-06-14 08:56 | CA_ITS ---
Acquisition Time: 2025-06-14 09:06:28 Total Exercise Time: 00:09:35 Test Indications: SOB Medications: SEE H&P Protocol: OSVALDO Max HR: 148 BPM 90% of Pred: 163 BPM Max BP: 164/68 mmHG Max Work Load: 11.0 METS Exercise stress test with exercise 9 mins 35 secs of Osvaldo Protocol, achieving 90% MPHR, with reports of SOB, fatigue and right arm pain, with isolated PVCs, with normotensive response to exercise. Without any EKG changes meeting criteria for ischemia. In recovery, pt's breathing improved and feeling back to baseline. Nuclear images pending. Test reviewed with Dr. Day. Referred By: Arley Gee Electronically Signed By: Srikanth Ambrosio
--- OUTSIDE RECORDS SUMMARY | 2025-06-14 09:03 | XMS_ITS | Clinical Summary ---
Author Organization [facility] Address [address] [place] [address] Care Team Providers Care Editorial Project Manager Name Role Phone Unavailable Primary Care Provider Unavailabl e Social History Tobacco Use Types Packs/Day Years Used Date Smoking Tobacco: Never Assessed Sex and Gender Information Value Date Recorded Sex Assigned at Not on file Gender Identity Not on file Sexual Orientation Not on file Plan of Treatment Not on file
== END ==
LOC: HO.CARD 08:50
PROVIDERS: PCP Hospitalist; Referring Provider General Practice; Visit Provider General Practice
DX: R06.00 Dyspnea, unspecified (principal)
CPT/HCPCS: 78452; 93017; A9500; J0280; J2785

== ENCOUNTER → 2025-06-14 08:56 | Outpatient (BNV) | payer OTHER, SELFPAY | PROVIDERS: PCP Hospitalist | DX: I49.3 Ventricular premature depolarization (principal); R06.02 Shortness of breath | CPT/HCPCS: 93016; 93018 ==